=== PATIENT | male | born 1955 | race African-American/Black ===

== ENCOUNTER 2017-04-29 04:38 | Inpatient (IN) | payer MEDICARE, OTHER ==
[~2017-04-29] VITALS: Ht 182.9 cm; Wt 82.6 kg
[2017-04-29] VITALS (10 sets, daily range): BP systolic 97–143; BP diastolic 57–90; PULSE 102–135; RESP 18–23; TEMP 97.9–100.2; O2SAT 96–100
[2017-04-29] MEDS ORDERED: IODIXANOL 320 MG/ML 10 ML VIAL (for Rad CT) IV ONE (04:39)
--- NOTE | 2017-04-29 05:35 | PD ---
HPI Chief Complaint: Altered Mental Status Time Seen by Provider: 05:10 Travel History International Travel<30 days: No Contact w/Intl Traveler<30days: No Traveled to known affect area: No History of Present Illness HPI The patient is a 61 year old male who presents to the [facility] emergency department with a history of decreased appetite since Thursday. Then, he became more confused and intermittently moaning at bedtime. He pointed to his abdomen as the site of the pain. His then woke up later with him having gurgling in the back of his throat. He then seemed to be erratically breathing and possibly short of breath. She denies having any vomiting or diarrhea. She reports that he did have a subjective fever this evening as he felt warm to the touch. He missed his Lactulose for a few days because he went out of town. He has a baseline level of confusion related to prior strokes and is minimally verbal on exam. The patient's family member at the bedside reports that his urine has smelled stronger than usual over the last 2 days. The patient is incontinent of urine and uses depends.The patient's denies him having any recent cough, congestion, neck pain, chest pain,vomiting, diarrhea, or focal neurologic symptoms. [facility] Past Medical History Narrative Medical The patient's past medical history is significant for hepatic encephalopathy, uncircumcised and some difficulty urinating with recurrent UTIs, seizures, subdural hematoma that his reports was attempted to be drained on 2 occasions in the OR, however he ended up in cardiopulmonary arrest and was resuscitated, hypertension, hyperlipidemia, CVA, elevated PSA (followed by Dr. Mcgarry), history of coronary artery disease, history of COPD, history of DVT, history of hypernatremia. Neurologist: Dr. Mortensen Medical History: Unable to Obtain Cerebrovascular Accident: Yes Past Surgical History Narrative Surgical The patient's past surgical history is significant for iraida hole x2.. Surgical History: Unable to Obtain Social History Alcohol Use: No Tobacco Use: No Substance Use: No Allergies-Medications (Allergen,Severity, Reaction): Coded Allergies: No Known Allergies (Unverified , 04/29/17) Reported Meds & Prescriptions Reported Meds & Active Scripts Active Active Prescriptions or Reported Medications Unobtainable Review of Systems Except as stated in HPI: all other systems reviewed are Neg General / Constitutional: Positive: Fever (subjective fever prior to arrival) Eyes: No: Visual changes HENT: No: Headaches, Rhinorrhea, Congestion Cardiovascular: No: Chest Pain or Discomfort, Dyspnea on exertion Respiratory: Positive: Shortness of Breath, No: Cough Gastrointestinal: Positive: Loss of Appetite, No: Nausea, Vomiting, Diarrhea, Abdominal Pain, Changes in Bowel Habits, Indigestion Genitourinary: Positive: Incontinence, Other (strong odor to his urine), No: Dysuria Musculoskeletal: No: Pain Skin: No Rash Neurologic: Positive: Weakness (generalized weakness), Change in Mentation, No : Focal Abnormalities, Slurred Speech, Sensory Disturbance Psychiatric: No: Depression Endocrine: No: Polydipsia Hematologic/Lymphatic: No: Easy Bruising Physical Exam Narrative General: The patient is a well-developed well-nourished male in no acute distress. Head and Neck exam: Head is normocephalic atraumatic. Eyes: The patient is uncooperative with extraocular motion testing. Pupils are equal round and reactive to light. Nose: Midline septum with pink mucous membranes Mouth: Dentition unremarkable. Moist mucus membranes. Posterior oropharynx is not erythematous. No tonsillar hypertrophy. Uvula midline. Airway patent. Neck: No palpable lymphadenopathy. No nuchal rigidity. No thyromegaly. Cardiovascular: Sinus tachycardia in the 120s without murmurs, gallops, or rubs. No pulse deficit to the extremities and simultaneous auscultation and palpation of his radial artery. Lungs: Clear to auscultation bilaterally. No wheezes, rhonchi, or rales. Abdomen: Soft, with tenderness on palpation over the suprapubic area, no other tenderness on palpation of the other quadrants of the abdomen. No guarding, rebound, or rigidity. Normal bowel sounds are audible. No tenderness on palpation of McBurney's point. Negative Smiley's sign. Extremities: No clubbing, cyanosis, or edema. 2+ pulses in all 4 extremities. No calf tenderness on palpation. Back: No costovertebral angle tenderness to palpation. Neurologic Exam: The patient is at his baseline of mentation from looking at the electronic medical record and his prior neurologic examinations. The patient is verbally noncommunicative. The patient does open his eyes and make eye contact with me. The patient spontaneously moves his upper extremities and lower extremities. The patient does not follow commands. Skin Exam: No rash noted. Intact skin that is warm and dry. Data Data Last Documented VS Vital Signs Date Time Temp Pulse Resp B/P (MAP) Pulse Ox O2 Delivery O2 Flow Rate FiO2 04/29/17 05:22 121 20 99 Room Air 04/29/17 04:44 98.4 131/90 (104) Orders Orders Electrocardiogram (04/29/17 05:12) Complete Blood Count With Diff (04/29/17 05:12) Comprehensive Metabolic Panel (04/29/17 05:12) Creatine Kinase (Cpk) (04/29/17 05:12) Ckmb (Isoenzyme) Profile (04/29/17 05:12) Troponin I (04/29/17 05:12) B-Type Natriuretic Peptide (04/29/17 05:12) Prothrombin Time / Inr (Pt) (04/29/17 05:12) Act Partial Throm Time (Ptt) (04/29/17 05:12) Blood Culture (04/29/17 05:12) Lipase (04/29/17 05:12) Urinalysis - C+S If Indicated (04/29/17 05:12) Cath For Specimen (04/29/17 05:12) D-Dimer (04/29/17 05:12) Magnesium (Mg) (04/29/17 05:12) Thyroid Stimulating Hormone (04/29/17 05:12) Chest, Single Ap (04/29/17 05:12) Ct Brain W/O Iv Contrast(Rout) (04/29/17 05:12) Iv Access Insert/Monitor (04/29/17 05:12) Ecg Monitoring (04/29/17 05:12) Oximetry (04/29/17 05:12) Lactic Acid Sepsis Protocol (04/29/17 05:12) Ammonia (04/29/17 05:35) CKMB (04/29/17 05:25) CKMB% (04/29/17 05:25) Sodium Chlor 0.9% 1000 Ml Inj (Ns 1000 M (04/29/17 06:14) Sodium Chlor 0.9% 1000 Ml Inj (Ns 1000 M (04/29/17 06:14) Sodium Chlor 0.9% 1000 Ml Inj (Ns 1000 M (04/29/17 06:14) Vancomycin Inj (Vancomycin Inj) (04/29/17 06:15) Piperacil-Tazo 3.375 Gm Premix (Zosyn 3. (04/29/17 06:15) Ct Pulmonary Angiogram (04/29/17 06:18) Consult Urology (04/29/17 ) Admit Order (Ed Use Only) (04/29/17 07:13) Bladder Scan PRN (04/29/17 07:16) Labs Laboratory Tests Test 04/29/17 05:25 04/29/17 05:45 04/29/17 06:25 White Blood Count 3.5 TH/MM3 Red Blood Count 5.23 MIL/MM3 Hemoglobin 16.4 GM/DL Hematocrit 49.1 % Mean Corpuscular Volume 94.0 FL Mean Corpuscular Hemoglobin 31.5 PG Mean Corpuscular Hemoglobin Concent 33.5 % Red Cell Distribution Width 14.5 % Platelet Count 169 TH/MM3 Mean Platelet Volume 8.4 FL Neutrophils (%) (Auto) 85.6 % Lymphocytes (%) (Auto) 12.5 % Monocytes (%) (Auto) 1.7 % Eosinophils (%) (Auto) 0.1 % Basophils (%) (Auto) 0.1 % Neutrophils # (Auto) 3.0 TH/MM3 Lymphocytes # (Auto) 0.4 TH/MM3 Monocytes # (Auto) 0.1 TH/MM3 Eosinophils # (Auto) 0.0 TH/MM3 Basophils # (Auto) 0.0 TH/MM3 CBC Comment DIFF FINAL Differential Comment Prothrombin Time 10.8 SEC Prothromb Time International Ratio 1.0 RATIO Activated Partial Thromboplast Time 20.6 SEC D-Dimer Quantitative (PE/DVT) 2.40 MG/L FEU Blood Urea Nitrogen 9 MG/DL Creatinine 1.81 MG/DL Random Glucose 127 MG/DL Total Protein 8.9 GM/DL Albumin 4.5 GM/DL Calcium Level 11.2 MG/DL Magnesium Level 1.9 MG/DL Alkaline Phosphatase 164 U/L Aspartate Amino Transf (AST/SGOT) 66 U/L Alanine Aminotransferase (ALT/SGPT) 57 U/L Total Bilirubin 1.0 MG/DL Sodium Level 147 MEQ/L Potassium Level 3.7 MEQ/L Chloride Level 116 MEQ/L Carbon Dioxide Level 18.8 MEQ/L Anion Gap 12 MEQ/L Estimat Glomerular Filtration Rate 46 ML/MIN Lactic Acid Level 7.3 mmol/L Total Creatine Kinase 633 U/L Creatine Kinase MB 4.2 NG/ML Creatine Kinase MB % 0.7 % Troponin I 0.04 NG/ML B-Type Natriuretic Peptide 85 PG/ML Lipase 91 U/L Thyroid Stimulating Hormone 3rd Gen 1.000 uIU/ML Ammonia 22 MCMOL/L Urine Color ORANGE Urine Turbidity HAZY Urine pH 6.0 Urine Specific [place] 1.013 Urine Protein 30 mg/dL Urine Glucose (UA) NEG mg/dL Urine Ketones NEG mg/dL Urine Occult Blood LARGE Urine Nitrite NEG Urine Bilirubin NEG Urine Urobilinogen 2.0 MG/DL Urine Leukocyte Esterase LARGE Urine RBC /hpf Urine WBC 27 /hpf Urine WBC Clumps RARE Urine Squamous Epithelial Cells <1 /hpf Urine Transitional Epithelial Cells <1 /hpf Urine Bacteria MANY /hpf Urine Mucus FEW /lpf Microscopic Urinalysis Comment CULTURE INDICATED MDM Medical Decision Making Medical Screen Exam Complete: Yes Emergency Medical Condition: Yes Medical Record Reviewed: Yes Interpretation(s) Last Impressions Head CT 04/29/17511 Signed Impressions: Service Date/Time: Saturday, April 29, 2017 05:35 - CONCLUSION: 1. No acute hemorrhage or infarction. 2. Large chronic subdural fluid collection on the left with some mass effect including 8 mm of midline shift. 3. Significant areas of encephalomalacia involving the right cerebral hemisphere and left temporal lobe as detailed above. Endy Lemon Jr., MD Chest X-Ray 04/29/17511 Signed Impressions: Service Date/Time: Saturday, April 29, 2017 05:41 - CONCLUSION: No acute disease. Endy Lemon Jr., MD Differential Diagnosis Intracranial hemorrhage, versus urinary tract infection, versus dehydration, versus pneumonia, versus sepsis of undetermined origin, versus electrolyte arrangement Narrative Course During the course of the patients emergency department visit, the patients history, examination, and differential diagnosis were reviewed with the patient. The patient had IV access obtained and blood work sent for analysis. The patient was placed on a botany teacher with oximetry and blood pressure.. An ECG was done on arrival. The patient's ECG reveals a sinus tachycardia heart rate of 138, no acute ST segment elevation or depression is noted, QRS duration is 86 ms, QTC is 444 ms. The patient was initially provided a 30 mL per KG IV fluid bolus due to a concern for sepsis. The patient was started on broad-spectrum antibiotics to include Zosyn 3.375 g IV, vancomycin 1 g IV. An attempt was made at placement of a coud Winter catheter, however this would not pass. The patient is continuing to urinate on his own. The patient is normally incontinent. A sample was able to be obtained in the urinal. A bladder scan has been ordered on the patient. The patients laboratory studies were reviewed and remarkable for a white count of 3.5, hemoglobin 16.4, platelets 169 with neutrophils 85.6. CMP is remarkable for sodium of 147, chloride 116, CO2 18.8, creatinine 1.81, glucose 127, calcium 11.2, AST 66, alkaline phosphatase 164, CPK 633 with an MB percent 0.7, troponin I 0.04, BNP is 85, lipase 91, TSH 1.0, ammonia level is 22. Initial lactic acid is 7.3, PT PTT are unremarkable, d-dimer is elevated at 2.40 , CTA to rule out PE was ordered. Urinalysis shows 30 protein, large occult blood, large leukocyte esterase, innumerable rbc's, 27 WBCs with rare clumps, many bacteria, culture indicated. Radiology studies were reviewed and remarkable for a chest x-ray that shows no acute cardiopulmonary disease. A CT scan of the brain shows no acute hemorrhage or infarction, large chronic subdural fluid collection on the left with some mass effect including 8 mm of midline shift, significant area of encephalomalacia involving the right cerebral hemisphere and left temporal lobe. CTA to rule out PE shows severe respiratory motion artifact however no PE identified within the visualized vessels. Moderate emphysema. The patients results were discussed with the patient, including the plan of care. I explained that further testing and/ or monitoring is indicated based on the patients history, examination, and/ or laboratory findings. Therefore, I recommended admission for additional evaluation. The patient expressed understanding and was agreeable with this plan. The patient was admitted to the hospital in guarded condition and [facility] Critical Care Narrative Aggregate critical care time was 33 minutes. Time to perform other separately billable procedures was not included in the critical care time. My time did not include minutes spent treating any other patients simultaneously or on activities that did not directly contribute to the patient's treatment. The services I provided to this patient were to treat and/or prevent clinically significant deterioration that could result in: Fluid overload related to a resuscitation, versus cardiovascular collapse, versus progression of encephalopathy I provided critical care services requiring my management, as noted below: Chart data review, documentation time, medication orders and management, vital sign assessments/reviewing monitor data, ordering and reviewing lab tests, ordering and interpreting/reviewing x-rays and diagnostic studies, care of the patient and discussion of the patient with the admitting physicians. Sepsis Criteria SIRS Criteria (2 or more): Heart rate over 90, RR > 20 or PaCO2 < 32, WBC > 36540, < 4000 or > 10% bands Physician Communication Physician Communication The patient's case is discussed with who did agree to admit the patient for further evaluation and treatment at this time. Diagnosis Primary Impression: Sepsis Qualified Codes: A41.9 - Sepsis, unspecified organism Additional Impressions: Dehydration Urinary tract infection Qualified Codes: N39.0 - Urinary tract infection, site not specified; R31.9 - Hematuria, unspecified Admitting Information Admitting Physician Requests: Admit Scripts Unable to Obtain Active Prescriptions or Reported Meds Tamara Price MD Apr 29, 2017 05:35
--- NOTE | 2017-04-29 05:49 | RADRPT ---
EXAM DATE/TIME: 04/29/2017 05:35 [facility] COMPARISON: No previous studies available for comparison. INDICATIONS : Altered mental status; non verbal. RADIATION DOSE: 41.55 CTDIvol (mGy) MEDICAL HISTORY : Cerebrovascular disease. SURGICAL HISTORY : Non-responsive. ENCOUNTER: Initial ACUITY: 1 day PAIN SCALE: Non-responsive LOCATION: cranial TECHNIQUE: Multiple contiguous axial images were obtained of the head. Using automated exposure control and adj ustment of the mA and/or kV according to patient size, radiation dose was kept as low as reasonably a chievable to obtain optimal diagnostic quality images. DICOM format image data is available electro nically for review and comparison. FINDINGS: A large chronic subdural fluid collection is seen on the left side. This measures 2.6 cm in greatest thickness. As does generate some mass effect upon the left cerebral hemisphere. There is no associate d acute hemorrhage. Significant encephalomalacia seen scattered throughout the right frontal lobe, te mporal lobe, and parietal lobe. Encephalomalacia seen involving the left temporal lobe. There is 8 mm of [id number] midline shift secondary to the previously described chronic subdural. Ventricles re main normal in size. No acute hemorrhage, acute infarction, or mass observed. Multiple iraida hole seen on the left. Calvarium is otherwise intact. CONCLUSION: 1. No acute hemorrhage or infarction. 2. Large chronic subdural fluid collection on the left with some mass effect including 8 mm of midlin e shift. 3. Significant areas of encephalomalacia involving the right cerebral hemisphere and left temporal lo be as detailed above. Endy Lemon Jr., MD on April 29, 2017 at 5:45 Board Certified Radiologist. This report was verified electronically.
[2017-04-29 05:59] LABS: BASOPHIL % 0.1 % (0.0-2.0); EOSINOPHIL % 0.1 % (0.0-4.0); HEMATOCRIT 49.1 % (39.0-51.0); HEMO FLAGS DIFF FINAL; LYMPH % 12.5 % (9.0-44.0); LYMPHOCYTE # 0.4 TH/MM3 (1.0-4.8); MEAN CORPUSCULAR HEMOGLOBIN 31.5 PG (27.0-34.0); MEAN CORPUSCULAR HGB CONC 33.5 % (32.0-36.0); MONO % 1.7 % (0.0-8.0); NEUT % 85.6 % (16.0-70.0); PLATELET COUNT 169 TH/MM3 (150-450); RED BLOOD COUNT 5.23 MIL/MM3 (4.50-5.90); RED CELL DISTRIBUTION WIDTH 14.5 % (11.6-17.2); WHITE BLOOD COUNT 3.5 TH/MM3 (4.0-11.0)
[2017-04-29 06:00] LABS: ALT (GPT) 57 U/L (12-78); ANION GAP 12 MEQ/L (5-15); AST (GOT) 66 U/L (15-37); BICARBONATE 18.8 MEQ/L (21.0-32.0); BLOOD UREA NITROGEN 9 MG/DL (7-18); CHLORIDE 116 MEQ/L (98-107); GLOMERULAR FILTRATION RATE 46 ML/MIN (>89); MAGNESIUM 1.9 MG/DL (1.5-2.5); POTASSIUM 3.7 MEQ/L (3.5-5.1); SODIUM (NA) 147 MEQ/L (136-145)
[2017-04-29 06:05] LABS: APTT (PATIENT) 20.6 SEC (24.3-30.1); PROTHROMBIN TIME - PATIENT 10.8 SEC (9.8-11.6)
[2017-04-29 06:10] LABS: ALKALINE PHOSPHATASE 164 U/L (45-117); CREATINE KINASE 633 U/L (39-308)
[2017-04-29] MEDS ORDERED: SODIUM CHLOR 0.9% 1000 ML INJ 1,000 ML IV ONE ×2 (06:14)
[2017-04-29] MEDS ORDERED: SODIUM CHLOR 0.9% 1000 ML INJ 400 ML IV ONE (06:14)
[2017-04-29] MEDS ORDERED: VANCOMYCIN INJ 1,000 MG in SODIUM CHLOR 0.9% 250 ML INJ 250 ML IV ONE (06:15)
[2017-04-29] MEDS ORDERED: PIPERACIL-TAZO 3.375 GM PREMIX 50 ML IV ONE (06:15)
[2017-04-29 06:22] LABS: CKMB 4.2 NG/ML (0.5-3.6)
--- NOTE | 2017-04-29 06:29 | RADRPT ---
EXAM DATE/TIME: 04/29/2017 05:41 [facility] COMPARISON: No previous studies available for comparison. INDICATIONS : Short of breath. MEDICAL HISTORY : None. SURGICAL HISTORY : None. ENCOUNTER: Initial ACUITY: 1 day PAIN SCORE: 0/10 LOCATION: Bilateral chest FINDINGS: A single view of the chest demonstrates the lungs to be symmetrically aerated without evidence of mas s, infiltrate or effusion. The cardiomediastinal contours are unremarkable. Osseous structures are intact. CONCLUSION: No acute disease. Endy Lemon Jr., MD on April 29, 2017 at 6:27 Board Certified Radiologist. This report was verified electronically.
[2017-04-29 07:37] LABS: LACTIC ACID GHOST NOT REPORTABLE
--- NOTE | 2017-04-29 07:38 | RADRPT ---
EXAM DATE/TIME: 04/29/2017 07:10 [facility] COMPARISON: No previous studies available for comparison. INDICATIONS : Elevated D-dimer. IV CONTRAST: 75 cc Visipaque (iodixanol) IV RADIATION DOSE: 19.66 CTDIvol (mGy) MEDICAL HISTORY : Cerebrovascular disease. SURGICAL HISTORY : None. ENCOUNTER: Initial ACUITY: 1 day PAIN SCALE: Non-responsive LOCATION: chest TECHNIQUE: Volumetric scanning of the chest was performed using a pulmonary embolism protocol MIP images were re constructed. Using automated exposure control and adjustment of the mA and/or kV according to patien t size, radiation dose was kept as low as reasonably achievable to obtain optimal diagnostic quality images. DICOM format image data is available electronically for review and comparison. Follow-up recommendations for detected pulmonary nodules are based at a minimum on nodule size and pa tient risk factors according to Fleischner Society Guidelines. FINDINGS: Dissemination quality significantly degraded by respiratory motion artifact and less than optimal opa cification of the pulmonary arteries. PULMONARY ARTERIES: No filling defects are seen in the pulmonary arteries through some of the segmental level arterial ve ssels. LUNGS: There is no consolidation or pneumothorax . There are emphysematous changes bilaterally. PLEURAE: There is no pleural thickening or pleural effusion. MEDIASTINUM: Heart and great vessels demonstrate no acute finding. There is coronary artery calcification. No lymp hadenopathy is visualized. MUSCULOSKELETAL: No acute abnormality. MISCELLANEOUS: The visualized upper abdominal organs demonstrate no acute abnormality. CONCLUSION: 1. Examination quality is significantly degraded by severe respiratory motion artifact. However, no P E is identified within the visualized vessels. 2. Moderate emphysema. Sj Carter MD on April 29, 2017 at 7:33 Board Certified Radiologist. This report was verified electronically.
[2017-04-29 07:41] LABS: BACTERIA, URINE MANY /hpf; BLOOD, URINE LARGE (NEG); GLUCOSE,URINE NEG (NEG); KETONE, URINE NEG (NEG); MUCUS URINE FEW /lpf (OCC); NITRITE,URINE NEG (NEG); SQUAMOUS EPITHELIAL CELL URINE <1 /hpf (0-5); TRANSITIONAL EPI CELLS, URINE <1 /hpf
[2017-04-29 07:42] LABS: COMMENT (UR) CULTURE INDICATED; CULTURE IF INDICATED CULTURE INDICATED; URINE COLOR ORANGE (YELLW/STRAW)
[2017-04-29] MEDS ORDERED: ACETAMINOPHEN 325 MG TAB PO PRN ×2 (08:00)
[2017-04-29] MEDS ORDERED: ONDANSETRON HCL 4 MG/2 ML VIAL IVP PRN (08:00)
[2017-04-29] MEDS: SODIUM CHLOR 0.9% 1000 ML INJ 1,000 ML IV SCH ×2 (08:00→15:25)
[2017-04-29] MEDS ORDERED: MORPHINE SULFATE 4 MG/ML INJ IV PUSH PRN ×2 (08:00)
[2017-04-29] MEDS ORDERED: NALOXONE HCL 0.4 MG/ML AMP IV PUSH PRN (08:00)
[2017-04-29] MEDS ORDERED: oxyCODONE/ACETAMINOPHEN 10 MG/325 MG TAB PO PRN (08:00)
[2017-04-29] MEDS ORDERED: PROCHLORPERAZINE 25 MG SUPP RECTAL PRN (08:00)
[2017-04-29] MEDS ORDERED: SENNOSIDES 8.6 MG TAB PO PRN (08:00)
[2017-04-29] MEDS ORDERED: MAGNESIUM HYDROXIDE SUSP 30 ML CUP PO PRN (08:00)
[2017-04-29] MEDS ORDERED: BISACODYL 10 MG SUPP RECTAL PRN (08:00)
[2017-04-29] MEDS ORDERED: LACTULOSE SYRUP 20 GM/30 ML CUP PO PRN (08:00)
[2017-04-29] MEDS ORDERED: SODIUM CHLORIDE 0.9% FLUSH 10 ML FLUSH IV FLUSH PRN (08:00)
[2017-04-29] MEDS ORDERED: Vancomycin Consult Pharmacy 1 EA OTHER SCH (08:15)
[2017-04-29] MEDS ORDERED: AMLO5 PO (08:29)
[2017-04-29] MEDS ORDERED: VIMP200T PO (08:29)
[2017-04-29] MEDS: SODIUM CHLORIDE 0.9% FLUSH 10 ML FLUSH IV FLUSH SCH ×2 (08:57→20:56)
[2017-04-29] MEDS ORDERED: LIVA2TAB PO (09:10)
[2017-04-29] MEDS ORDERED: OMEP20TA PO (09:10)
[2017-04-29] MEDS ORDERED: VITA100T54 PO (09:10)
[2017-04-29] MEDS ORDERED: TOPA50TA7 PO (09:10)
--- NOTE | 2017-04-29 09:42 | HHI.HP ---
HPI Service [facility] Hospitalists Primary Care Physician Monet Soliman DO Admission Diagnosis Dehydration, Sepsis Diagnoses: (1) Urinary retention Diagnosis: Principal (2) UTI (urinary tract infection) Diagnosis: Principal (3) Dehydration Diagnosis: Principal (4) Urinary tract infection Diagnosis: Principal (5) Sepsis Diagnosis: Principal (6) Cerebral vascular accident Diagnosis: Secondary Travel History International Travel<30 Days: No Contact w/Intl Traveler <30 Da: No Traveled to Known Affected Are: No History of Present Illness The patient is a 61 year old male who presents to the [facility] emergency department with a history of decreased appetite since Thursday. Then, he became more confused and intermittently moaning at bedtime. He pointed to his abdomen as the site of the pain. His then woke up later with him having gurgling in the back of his throat. He then seemed to be erratically breathing and possibly short of breath. She denies having any vomiting or diarrhea. She reports that he did have a subjective fever this evening as he felt warm to the touch. He missed his Lactulose for a few days because he went out of town. He has a baseline level of confusion related to prior strokes and is minimally verbal on exam. The patient's family member at the bedside reports that his urine has smelled stronger than usual over the last 2 days. The patient is incontinent of urine and uses depends.The patient's denies him having any recent cough, congestion, neck pain, chest pain,vomiting, diarrhea, or focal neurologic symptoms. PATIENT REMAINS NONVERBAL AT THIS TIME DW RN TRY TO OBTAIN HOME MEDICATIONS CONSULT UROLOGY Review of Systems ROS Limitations: Altered Mental Status, Poor Historian Past Family Social History Past Medical History History of subdural hematoma History of urinary retention History of CVA with chronic aphasia History of chronic urinary issues Hepatic encephalopathy Seizures Subdural hematoma Hypertension Hyperlipidemia history of CVA history of elevated PSA history of coronary artery disease history of COPD history of tobacco abuse history of DVT history of hypernatremia Past Surgical History Attempted iraida hole for subarachnoid History of CVA Looks like history of tracheostomy and history of PEG tube both removed Reported Medications Unknown at this time need to be obtained Allergies: Coded Allergies: No Known Allergies (Unverified , 04/29/17) Active Ordered Medications Current Medications Sodium Chloride 1,000 ml @ 1,000 mls/hr Q1H ONCE IV Last administered on 06:30; Start 04/29/17 at 06:14; Stop 04/29/17 at 07:13; Status DC Sodium Chloride 1,000 ml @ 1,000 mls/hr Q1H ONCE IV Last administered on 07:56; Start 04/29/17 at 06:14; Stop 04/29/17 at 07:13; Status DC Sodium Chloride 400 ml @ 1,000 mls/hr Q24M ONCE IV Last administered on 07:56; Start 04/29/17 at 06:14; Stop 04/29/17 at 06:37; Status DC Vancomycin HCl 1000 mg/Sodium Chloride 250 ml @ 250 mls/hr ONCE ONCE IV Last administered on 04/29/17 07:57; Start 04/29/17 at 06:15; Stop 04/29/17 at 07:14 ; Status DC Piperacillin Sod/ Tazobactam Sod 50 ml @ 100 mls/hr ONCE ONCE IV Last administered on 04/29/17 06:30; Start 04/29/17 at 06:15; Stop 04/29/17 at 06:44 ; Status DC Iodixanol (VISIPAQUE 320 INJ (Rad CT)) 75 ml STK-MED ONCE IV Last administered on 04/29/17 04:39; Start 04/29/17 at 04:39; Stop 04/29/17 at 07:20; Status DC Sodium Chloride 1,000 ml @ 125 mls/hr Q8H IV Last administered on 04/29/17 08 :00; Start 04/29/17 at 08:00 Sodium Chloride (NS Flush) 2 ml UNSCH PRN IV FLUSH FLUSH AFTER USING IV ACCESS ; Start 04/29/17 at 08:00 Sodium Chloride (NS Flush) 2 ml BID IV FLUSH ; Start 04/29/17 at 09:00 Acetaminophen (Tylenol) 650 mg Q4H PRN PO TEMP > 100.4; Start 04/29/17 at 08:00 Ondansetron HCl (Zofran Inj) 4 mg Q6H PRN IVP NAUSEA OR VOMITING; Start at 08:00 Prochlorperazine (Compazine Supp) 25 mg Q12H PRN VA NAUSEA OR VOMITING; Start 04/29/17 at 08:00; Status UNV Acetaminophen (Tylenol) 650 mg Q6H PRN PO PAIN SCALE 1 TO 2; Start 04/29/17 at 08:00 Oxycodone/ Acetaminophen (Percocet 5-325 Mg) 1 tab Q6H PRN PO PAIN SCALE 3 TO 5; Start 04/29/17 at 08:00 Oxycodone/ Acetaminophen (Percocet 10-325 Mg) 1 tab Q6H PRN PO PAIN SCALE 6 TO 10; Start 04/29/17 at 08:00 Morphine Sulfate (Morphine Inj) 2 mg Q3H PRN IV PUSH Pain 3-5; if unable to take PO; Start 04/29/17 at 08:00 Morphine Sulfate (Morphine Inj) 4 mg Q3H PRN IV PUSH Pain 6-10;if unable to take PO; Start 04/29/17 at 08:00 Naloxone HCl (Narcan Inj) 0.4 mg UNSCH PRN IV PUSH SEE LABEL COMMENTS; Start at 08:00 Senna/Docusate Sodium (Kaylen-Colace) 1 tab BID PO ; Start 04/29/17 at 09:00 Magnesium Hydroxide (Milk Of Magnesia Liq) 30 ml Q12H PRN PO MILD - MODERATE CONSTIPATION; Start 04/29/17 at 08:00 Sennosides (Senokot) 17.2 mg Q12H PRN PO MODERATE - SEVERE CONSTIPATION; Start 04/29/17 at 08:00 Bisacodyl (Dulcolax Supp) 10 mg DAILY PRN RECTAL SEVERE CONSITIPATION; Start at 08:00 Lactulose (Lactulose Liq) 30 ml DAILY PRN PO SEVERE CONSITIPATION; Start at 08:00 Piperacillin Sod/ Tazobactam Sod 100 ml @ 200 mls/hr Q6H IV ; Start 04/29/17 at 08:15; Status UNV Pharmacy Profile Note 0 ml @ 0 mls/hr UNSCH OTHER ; Start 04/29/17 at 08:15 Family History Unobtainable from the patient Social History No tobacco alcohol or illicits currently Physical Exam Vital Signs Vital Signs Date Time Temp Pulse Resp B/P (MAP) Pulse Ox O2 Delivery O2 Flow Rate FiO2 04/29/17 07:30 99.0 108 18 133/83 (100) 97 Room Air 04/29/17 07:05 18 98 Room Air 04/29/17 05:22 121 20 99 Room Air 04/29/17 04:51 137 24 96 Room Air 04/29/17 04:44 98.4 135 20 131/90 (104) 96 Physical Exam GENERAL: This is a well-nourished, well-developed patient, in no apparent distress. SKIN: No rashes, ecchymoses or lesions. Cool and dry. HEAD: Atraumatic. Normocephalic. No temporal or scalp tenderness. EYES: Pupils equal round and reactive. Extraocular motions intact. No scleral icterus. No injection or drainage. ENT: Nose without bleeding, purulent drainage or septal hematoma. Throat without erythema, tonsillar hypertrophy or exudate. Uvula midline. Airway patent. NECK: Trachea midline. No JVD or lymphadenopathy. Supple, nontender, no meningeal signs. Old tracheostomy scar CARDIOVASCULAR: Regular rate and rhythm without murmurs, gallops, or rubs. S1- S2 no S3 or S4 some tachycardia RESPIRATORY: Clear to auscultation. Breath sounds equal bilaterally. No wheezes , rales, or rhonchi. GASTROINTESTINAL: Abdomen soft, non-tender, nondistended. No hepato-splenomegaly , or palpable masses. No guarding. Old PEG tube site MUSCULOSKELETAL: Extremities without clubbing, cyanosis, or edema. No joint tenderness, effusion, or edema noted. No calf tenderness. Negative Homans sign bilaterally. NEUROLOGICAL: Awake and alert. Not able to assess cranial nerves. Motor and sensory grossly within normal limits. 3 out of 5 muscle strength in all muscle groups. Nonverbal at this time. Not able to assess insight and judgment Not able to assess mood and behavior Laboratory Laboratory Tests Test 04/29/17 05:25 04/29/17 05:45 04/29/17 06:25 04/29/17 07:20 White Blood Count 3.5 Red Blood Count 5.23 Hemoglobin 16.4 Hematocrit 49.1 Mean Corpuscular Volume 94.0 Mean Corpuscular Hemoglobin 31.5 Mean Corpuscular Hemoglobin Concent 33.5 Red Cell Distribution Width 14.5 Platelet Count 169 Mean Platelet Volume 8.4 Neutrophils (%) (Auto) 85.6 Lymphocytes (%) (Auto) 12.5 Monocytes (%) (Auto) 1.7 Eosinophils (%) (Auto) 0.1 Basophils (%) (Auto) 0.1 Neutrophils # (Auto) 3.0 Lymphocytes # (Auto) 0.4 Monocytes # (Auto) 0.1 Eosinophils # (Auto) 0.0 Basophils # (Auto) 0.0 CBC Comment DIFF FINAL Differential Comment Prothrombin Time 10.8 Prothromb Time International Ratio 1.0 Activated Partial Thromboplast Time 20.6 D-Dimer Quantitative (PE/DVT) 2.40 Blood Urea Nitrogen 9 Creatinine 1.81 Random Glucose 127 Total Protein 8.9 Albumin 4.5 Calcium Level 11.2 Magnesium Level 1.9 Alkaline Phosphatase 164 Aspartate Amino Transf (AST/SGOT) 66 Alanine Aminotransferase (ALT/SGPT) 57 Total Bilirubin 1.0 Sodium Level 147 Potassium Level 3.7 Chloride Level 116 Carbon Dioxide Level 18.8 Anion Gap 12 Estimat Glomerular Filtration Rate 46 Lactic Acid Level 7.3 4.6 Total Creatine Kinase 633 Creatine Kinase MB 4.2 Creatine Kinase MB % 0.7 Troponin I 0.04 B-Type Natriuretic Peptide 85 Lipase 91 Thyroid Stimulating Hormone 3rd Gen 1.000 Ammonia 22 Urine Color ORANGE Urine Turbidity HAZY Urine pH 6.0 Urine Specific [place] 1.013 Urine Protein 30 Urine Glucose (UA) NEG Urine Ketones NEG Urine Occult Blood LARGE Urine Nitrite NEG Urine Bilirubin NEG Urine Urobilinogen 2.0 Urine Leukocyte Esterase LARGE Urine RBC Urine WBC 27 Urine WBC Clumps RARE Urine Squamous Epithelial Cells <1 Urine Transitional Epithelial Cells <1 Urine Bacteria MANY Urine Mucus FEW Microscopic Urinalysis Comment CULTURE INDICATED Date/Time Source Procedure Growth Status 04/29/17 05:25 Blood Peripheral Aerobic Blood Culture Pending Received 04/29/17 05:25 Blood Peripheral Anaerobic Blood Culture Pending Received 04/29/17 06:25 Urine Clean Catch Urine Culture Pending Received Result Diagram: 04/29/1725 04/29/[address] Angiography 04/29/1718 Signed Impressions: Service Date/Time: Thursday, April 29, 2017 07:10 - CONCLUSION: 1. Examination quality is significantly degraded by severe respiratory motion artifact. However, no PE is identified within the visualized vessels. 2. Moderate emphysema. Sj Carter MD Head CT 04/29/17511 Signed Impressions: Service Date/Time: Saturday, April 29, 2017 05:35 - CONCLUSION: 1. No acute hemorrhage or infarction. 2. Large chronic subdural fluid collection on the left with some mass effect including 8 mm of midline shift. 3. Significant areas of encephalomalacia involving the right cerebral hemisphere and left temporal lobe as detailed above. Endy Lemon Jr., MD Chest X-Ray 04/29/17511 Signed Impressions: Service Date/Time: Saturday, April 29, 2017 05:41 - CONCLUSION: No acute disease. MD Akiko Tripathi Jr.i VTE Risk Assessment Caprini VTE Risk Assessment: Mod/High Risk (score >= 2) Caprini Risk Assessment Model Point Value = 1 Point Value = 2 Point Value = 3 Point Value = 5 Age 41-60 Minor surgery BMI > 25 kg/m2 Swollen legs Varicose veins or History of unexplained or recurrent spontaneous Oral contraceptives or hormone replacement Sepsis (< 1 month) Serious lung disease, including pneumonia (< 1 month) Abnormal pulmonary function Acute myocardial infarction Congestive heart failure (< 1 month) History of inflammatory bowel disease Medical patient at bed rest Age 61-74 Arthroscopic surgery Major open surgery (> 45 min) Laparoscopic surgery (> 45 min) Malignancy Confined to bed (> 72 hours) Immobilizing plaster cast Central venous access Age >= 75 History of VTE Family history of VTE Factor V Leiden Prothrombin [id number] Lupus anticoagulant Anticardiolipin antibodies Elevated serum homocysteine Heparin-induced thrombocytopenia Other congenital or acquired thrombophilia Stroke (< 1 month) Elective arthroplasty Hip, pelvis, or leg fracture Acute spinal cord injury (< 1 month) Prophylaxis Regimen Total Risk Factor Score Risk Level Prophylaxis Regimen 0-1 Low Early ambulation 2 Moderate Order ONE of the following: *Sequential Compression Device (SCD) *Heparin 5000 units SQ BID 3-4 Higher Order ONE of the following medications: *Heparin 5000 units SQ TID *Enoxaparin/Lovenox 40 mg SQ daily (WT < 150 kg, CrCl > 30 mL/min) *Enoxaparin/Lovenox 30 mg SQ daily (WT < 150 kg, CrCl > 10-29 mL/min) *Enoxaparin/Lovenox 30 mg SQ BID (WT < 150 kg, CrCl > 30 mL/min) AND/OR *Sequential Compression Device (SCD) 5 or more Highest Order ONE of the following medications: *Heparin 5000 units SQ TID (Preferred with Epidurals) *Enoxaparin/Lovenox 40 mg SQ daily (WT < 150 kg, CrCl > 30 mL/min) *Enoxaparin/Lovenox 30 mg SQ daily (WT < 150 kg, CrCl > 10-29 mL/min) *Enoxaparin/Lovenox 30 mg SQ BID (WT < 150 kg, CrCl > 30 mL/min) AND *Sequential Compression Device (SCD) Assessment and Plan Problem List: (1) Cerebral vascular accident ICD Code: I63.9 - Cerebral infarction, unspecified (2) UTI (urinary tract infection) ICD Code: N39.0 - Urinary tract infection, site not specified (3) Urinary retention ICD Code: R33.9 - Retention of urine, unspecified (4) Sepsis ICD Code: A41.9 - Sepsis, unspecified organism Status: Acute (5) Urinary tract infection ICD Code: N39.0 - Urinary tract infection, site not specified Status: Acute (6) Dehydration ICD Code: E86.0 - Dehydration Status: Acute Assessment and Plan Sepsis suspected to urinary tract infection continue on vancomycin and Zosyn consult urology Dehydration and renal insufficiency continue on fluid rehydration History of hepatic encephalopathy continue on lactulose History of hyperlipidemia monitor labs continue on home medications History of CVA physical therapy and occupational therapy History of elevated PSA consult urology History of hypertension continue on Norvasc History of coronary artery disease stable at this time History of COPD History of GERD continue on PPI History of DVT History of hypernatremia Renal insufficiency and any fluid rehydration Code Status Full code Discussed Condition With ER physician and RN Patient unfortunately is aphasic and history not obtainable from him Physician Certification 2 Midnight Certification Type: Admission for Inpatient Services Order for Inpatient Services The services are ordered in accordance with Medicare regulations or non- Medicare payer requirements, as applicable. In the case of services not specified as inpatient-only, they are appropriately provided as inpatient services in accordance with the 2-midnight benchmark. Estimated LOS (days): 3 3 days is the estimated time the patient will need to remain in the hospital, assuming treatment plan goals are met and no additional complications. Post-Hospital Plan: Not yet determined Problem Qualifiers (1) Urinary tract infection: Qualified Codes: N39.0 - Urinary tract infection, site not specified; R31.9 - Hematuria, unspecified (2) Sepsis: Qualified Codes: A41.9 - Sepsis, unspecified organism Norman Daley DO Apr 29, 2017 09:42
[2017-04-29] MEDS: DOCUSATE SODIUM 50 MG/SENNA 8.6 MG TAB PO SCH ×2 (09:43→20:55)
[2017-04-29] MEDS ORDERED: amLODIPine BESYLATE 5 MG TAB PO SCH (09:45)
[2017-04-29] MEDS: THIAMINE HCL 100 MG TAB PO SCH (10:02)
[2017-04-29] MEDS: PANTOPRAZOLE SOD 20 MG DELAYED RELEASE TAB PO SCH (10:02)
[2017-04-29] MEDS: TOPIRAMATE 25 MG TAB PO SCH ×2 (10:02→20:55)
[2017-04-29] MEDS: PRAVASTATIN SOD 40 MG TAB PO SCH (10:02)
[2017-04-29] MEDS: LACOSAMIDE 100 MG TAB PO SCH ×2 (10:21→20:56)
[2017-04-29] MEDS: PIPERACIL-TAZO 4.5 GM PREMIX 100 ML IV SCH ×3 (12:57→23:14)
[2017-04-29 17:09] LABS: APTT (PATIENT) 27.9 SEC (24.3-30.1); INTERNATIONAL NORMALIZED RATIO 1.3 RATIO; PROTHROMBIN TIME - PATIENT 14.2 SEC (9.8-11.6)
[2017-04-29 17:29] LABS: CKMB 2.7 NG/ML (0.5-3.6)
[2017-04-29 18:44] LABS: LACTIC ACID GHOST NOT REPORTABLE
--- NOTE | 2017-04-29 20:44 | EKG ---
Date Performed: 04/29/2017 Time Performed: 04:54:14 PTAGE: 61 years EKG: SINUS TACHYCARDIA PROBABLE INFERIOR MYOCARDIAL INFARCTION ABNORMAL ECG NO PREVIOUS TRACING DOCTOR: Deny Castellanos Interpretating Date/Time 04/29/2017 20:41:20
[2017-04-29] MEDS ORDERED: VANCOMYCIN INJ 1,500 MG in SODIUM CHLORID 0.9% 500 ML INJ 500 ML IV SCH (21:00)
[2017-04-30] VITALS (7 sets, daily range): BP systolic 90–147; BP diastolic 50–78; PULSE 83–95; RESP 18–20; TEMP 97.6–99; O2SAT 95–100
[2017-04-30 00:03] LABS: HDL CHOLESTEROL 52.6 MG/DL (40.0-60.0)
[2017-04-30] MEDS: PIPERACIL-TAZO 4.5 GM PREMIX 100 ML IV SCH ×3 (05:10→17:22)
[2017-04-30] MEDS: oxyCODONE/ACETAMINOPHEN 5 MG/325 MG TAB PO PRN ×2 (05:11→21:22)
--- NOTE | 2017-04-30 09:01 | HHI.PR ---
Subjective Remarks The patient was resting in bed. He would not open his eyes. He would mumble every once in a while as a response. He appeared comfortable. Discussed with nursing at the bedside. Objective Vitals Vital Signs Date Time Temp Pulse Resp B/P (MAP) Pulse Ox O2 Delivery O2 Flow Rate FiO2 04/30/17 05:00 98.7 86 20 108/78 (88) 100 04/30/17 00:00 99.0 85 18 90/50 (63) 100 04/29/17 22:00 102 04/29/17 21:10 100 21 04/29/17 20:00 99.6 104 20 113/62 (79) 100 04/29/17 20:00 104 04/29/17 17:00 100.2 102 22 97/61 (73) 100 04/29/17 12:00 99.8 120 23 121/57 (78) 99 04/29/17 10:40 97.9 98 18 143/67 (92) 99 I/O 04/29/17 04/29/17 04/29/17 04/30/17 04/30/17 04/30/17 06:59 14:59 22:59 06:59 14:59 22:59 Intake Total 3600 ml 1120 ml 1540 ml Output Total 650 ml Balance 3600 ml 1120 ml 890 ml Intake Oral 200 ml 120 ml 840 ml IV Total 3400 ml 1000 ml 700 ml Output Urine Total 650 ml Bladder Scan Volume Amount 694 ml # Voids 1 2 3 # Bowel Movements 1 0 2 Result Diagram: 04/29/1752404/29/[address] Angiography 04/29/17617 Signed Impressions: Service Date/Time: Saturday, April 29, 2017 07:10 - CONCLUSION: 1. Examination quality is significantly degraded by severe respiratory motion artifact. However, no PE is identified within the visualized vessels. 2. Moderate emphysema. Sj Carter MD Head CT 04/29/17511 Signed Impressions: Service Date/Time: Saturday, April 29, 2017 05:35 - CONCLUSION: 1. No acute hemorrhage or infarction. 2. Large chronic subdural fluid collection on the left with some mass effect including 8 mm of midline shift. 3. Significant areas of encephalomalacia involving the right cerebral hemisphere and left temporal lobe as detailed above. Endy Lemon Jr., MD Chest X-Ray 04/29/17 0512 Signed Impressions: Service Date/Time: Saturday, April 29, 2017 05:41 - CONCLUSION: No acute disease. Endy Lemon Jr., MD Objective Remarks GENERAL: Appears comfortable. SKIN: No rashes, ecchymoses or lesions. Cool and dry. HEAD: Atraumatic. Normocephalic. No temporal or scalp tenderness. EYES: Pupils equal round and reactive. Extraocular motions intact. No scleral icterus. No injection or drainage. ENT: Nose without bleeding, purulent drainage or septal hematoma. Throat without erythema, tonsillar hypertrophy or exudate. Uvula midline. Airway patent. NECK: Trachea midline. No JVD or lymphadenopathy. Supple, nontender, no meningeal signs. Old tracheostomy scar CARDIOVASCULAR: Regular rate and rhythm without murmurs, gallops, or rubs. RESPIRATORY: Clear to auscultation. Breath sounds equal bilaterally. No wheezes , rales, or rhonchi. GASTROINTESTINAL: Abdomen soft, non-tender, nondistended. No hepato-splenomegaly , or palpable masses. No guarding. MUSCULOSKELETAL: Extremities without clubbing, cyanosis, or edema. No joint tenderness, effusion, or edema noted. NEUROLOGICAL: Nonverbal at this time. Moves extremities. Uncooperative with exam. Medications and IVs Current Medications Medications (Trade) Dose Ordered Sig/Feliciano Route Start Time Stop Time Status Last Admin Sodium Chloride 1,000 ml @ 125 mls/hr Q8H IV 04/29/17 08:00 04/29/17 15:25 (NS Flush) 2 ml UNSCH PRN IV FLUSH 04/29/17 08:00 (NS Flush) 2 ml BID IV FLUSH 04/29/17 09:00 (Tylenol) 650 mg Q4H PRN PO 04/29/17 08:00 (Zofran Inj) 4 mg Q6H PRN IVP 04/29/17 08:00 (Compazine Supp) 25 mg Q12H PRN RECTAL 04/29/17 08:00 (Tylenol) 650 mg Q6H PRN PO 04/29/17 08:00 (Percocet 5-325 Mg) 1 tab Q6H PRN PO 04/29/17 08:00 04/30/17 05:11 (Percocet 10-325 Mg) 1 tab Q6H PRN PO 04/29/17 08:00 (Morphine Inj) 2 mg Q3H PRN IV PUSH 04/29/17 08:00 (Morphine Inj) 4 mg Q3H PRN IV PUSH 04/29/17 08:00 (Narcan Inj) 0.4 mg UNSCH PRN IV PUSH 04/29/17 08:00 (Kaylen-Colace) 1 tab BID PO 04/29/17 09:00 04/29/17 20:55 (Milk Of Magnesia Liq) 30 ml Q12H PRN PO 04/29/17 08:00 (Senokot) 17.2 mg Q12H PRN PO 04/29/17 08:00 (Dulcolax Supp) 10 mg DAILY PRN RECTAL 04/29/17 08:00 (Lactulose Liq) 30 ml DAILY PRN PO 04/29/17 08:00 Piperacillin Sod/ Tazobactam Sod 100 ml @ 200 mls/hr Q6H IV 04/29/17 12:00 04/30/17 05:10 Pharmacy Profile Note 0 ml @ 0 mls/hr UNSCH OTHER 04/29/17 08:15 Miscellaneous Information SPECIFIC LAB TO BE DRAWN:VANCOMYCIN TROUGH DATE TO... ONCE ONCE .XX 05/01/17 20:45 05/01/17 20:46 Vancomycin HCl 1500 mg/Sodium Chloride 515 ml @ 250 mls/hr Q24H IV 04/29/17 21:00 04/29/17 20:55 (Norvasc) 5 mg DAILY PO 04/29/17 09:45 04/29/17 10:02 (Vimpat) 200 mg BID PO 04/29/17 09:45 04/29/17 20:56 (Vitamin B1) 100 mg DAILY PO 04/29/17 09:45 04/29/17 10:02 (Topamax) 50 mg BID PO 04/29/17 09:45 04/29/17 20:55 (Protonix) 20 mg DAILY PO 04/29/17 10:00 04/29/17 10:02 (Pravachol) 40 mg DAILY PO 04/29/17 10:00 04/29/17 10:02 A/P Problem List: (1) Cerebral vascular accident ICD Code: I63.9 - Cerebral infarction, unspecified (2) UTI (urinary tract infection) ICD Code: N39.0 - Urinary tract infection, site not specified (3) Urinary retention ICD Code: R33.9 - Retention of urine, unspecified (4) Sepsis ICD Code: A41.9 - Sepsis, unspecified organism Status: Acute (5) Urinary tract infection ICD Code: N39.0 - Urinary tract infection, site not specified Status: Acute (6) Dehydration ICD Code: E86.0 - Dehydration Status: Acute Assessment and Plan Sepsis Suspected secondary to urinary tract infection. - continue on vancomycin and Zosyn. - consult urology for urinary retention. - IVFs. - follow blood and urine culture data. Metabolic encephalopathy Likely s/t above. CT showed: No acute hemorrhage or infarction; Large chronic subdural fluid collection on the left with some mass effect including 8 mm of midline shift; Significant areas of encephalomalacia involving the right cerebral hemisphere and left temporal lobe. - treatment as above. - continue lactulose. - consider neurology consult. - restraints as needed for safety. Unable to give antipsychotics s/t prolonged QT. Ativan if needed. Dehydration and renal insufficiency Unsure of baseline creatinine. - continue on fluid rehydration. - follow BMP and avoid nephrotoxic agents. Hypernatremia Likely s/t decreased PO intake. - change fluids to 1/2 NS and follow BMP. Will change to D5W if needed. History of CVA The pt is nonverbal at this time. - continue physical therapy, occupational and speech therapy. History of hypertension Normotensive to hypotensive at this time. - hold Norvasc. PPx: Heparin Discharge Planning Transfer to medical floor Problem Qualifiers (1) Sepsis: Qualified Codes: A41.9 - Sepsis, unspecified organism (2) Urinary tract infection: Qualified Codes: N39.0 - Urinary tract infection, site not specified; R31.9 - Hematuria, unspecified Popeye Delgado DO Apr 30, 2017 09:01
[2017-04-30] MEDS ORDERED: LORazepam 2 MG/ML VIAL IV PUSH ONE (09:15)
[2017-04-30] MEDS: DOCUSATE SODIUM 50 MG/SENNA 8.6 MG TAB PO SCH ×2 (09:25→21:21)
[2017-04-30] MEDS: LACOSAMIDE 100 MG TAB PO SCH ×2 (09:25→21:21)
[2017-04-30] MEDS: PRAVASTATIN SOD 40 MG TAB PO SCH (09:25)
[2017-04-30] MEDS: THIAMINE HCL 100 MG TAB PO SCH (09:26)
[2017-04-30] MEDS: TOPIRAMATE 25 MG TAB PO SCH ×2 (09:26→21:22)
[2017-04-30] MEDS: HEPARIN SODIUM - SQ 10,000 UNITS/ML VIAL SQ SCH ×3 (09:26→21:23)
[2017-04-30] MEDS: PANTOPRAZOLE SOD 20 MG DELAYED RELEASE TAB PO SCH (09:26)
[2017-04-30] MEDS: SODIUM CHLORIDE 0.9% FLUSH 10 ML FLUSH IV FLUSH SCH ×2 (09:27→21:23)
[2017-04-30] MEDS: SODIUM CHLOR 0.45% 1000 ML INJ 1,000 ML IV SCH ×2 (09:28→17:23)
[2017-05-01] VITALS (8 sets, daily range): BP systolic 101–169; BP diastolic 60–91; PULSE 88–108; RESP 14–20; TEMP 97.2–98.6; O2SAT 96–99
[2017-05-01] MEDS: PIPERACIL-TAZO 4.5 GM PREMIX 100 ML IV SCH ×2 (00:45→05:39)
[2017-05-01] MEDS: SODIUM CHLOR 0.45% 1000 ML INJ 1,000 ML IV SCH ×2 (05:13→14:45)
[2017-05-01] MEDS: HEPARIN SODIUM - SQ 10,000 UNITS/ML VIAL SQ SCH ×3 (05:39→22:07)
[2017-05-01] MEDS: THIAMINE HCL 100 MG TAB PO SCH (08:40)
[2017-05-01] MEDS: PRAVASTATIN SOD 40 MG TAB PO SCH (08:40)
[2017-05-01] MEDS: DOCUSATE SODIUM 50 MG/SENNA 8.6 MG TAB PO SCH ×2 (08:40→22:08)
[2017-05-01] MEDS: LACOSAMIDE 100 MG TAB PO SCH ×2 (08:40→22:08)
[2017-05-01] MEDS: PANTOPRAZOLE SOD 20 MG DELAYED RELEASE TAB PO SCH (08:40)
[2017-05-01] MEDS: TOPIRAMATE 25 MG TAB PO SCH ×2 (08:41→22:08)
[2017-05-01] MEDS: SODIUM CHLORIDE 0.9% FLUSH 10 ML FLUSH IV FLUSH SCH ×2 (09:00→22:09)
[2017-05-01 11:14] LABS: AMYLASE 100 U/L (25-115); MAGNESIUM 1.8 MG/DL (1.5-2.5)
[2017-05-01 11:22] LABS: ALKALINE PHOSPHATASE 98 U/L (45-117); ALT (GPT) 30 U/L (12-78); ANION GAP 7 MEQ/L (5-15); AST (GOT) 20 U/L (15-37); BICARBONATE 20.8 MEQ/L (21.0-32.0); BLOOD UREA NITROGEN 9 MG/DL (7-18); CHLORIDE 117 MEQ/L (98-107); GLOMERULAR FILTRATION RATE 86 ML/MIN (>89); SODIUM (NA) 145 MEQ/L (136-145); TOTAL BILIRUBIN ADULT 0.3 MG/DL (0.2-1.0)
[2017-05-01 11:56] LABS: HEMATOCRIT 35.5 % (39.0-51.0); MEAN CELL VOLUME 92.5 FL (80.0-100.0); MEAN CORPUSCULAR HGB CONC 33.5 % (32.0-36.0); PLATELET COUNT 79 TH/MM3 (150-450); RED BLOOD COUNT 3.84 MIL/MM3 (4.50-5.90); RED CELL DISTRIBUTION WIDTH 14.6 % (11.6-17.2); WHITE BLOOD COUNT 16.3 TH/MM3 (4.0-11.0)
[2017-05-01 11:58] LABS: HEMO FLAGS AUTO DIFF
--- NOTE | 2017-05-01 12:02 | HHI.DCPOC ---
Discharge Care Plan Diagnosis: (1) UTI (urinary tract infection) (2) Dehydration (3) Sepsis Goals to Promote Your Health * To prevent worsening of your condition and complications * To maintain your health at the optimal level Directions to Meet Your Goals Take your medications as prescribed Follow your dietary instruction Follow activity as directed Keep your appointments as scheduled Take your immunizations and boosters as scheduled If your symptoms worsen call your PCP, if no PCP go to Urgent Care Center or Emergency Room Smoking is Dangerous to Your Health. Avoid second hand smoke Call the 24-hour hour crisis hotline for domestic abuse at Popeye Delgado DO May 01, 2017 12:02
--- NOTE | 2017-05-01 12:03 | HHI.FF ---
Face to Face Verification Diagnosis: (1) Cerebral vascular accident (2) UTI (urinary tract infection) (3) Sepsis (4) Urinary retention (5) Dehydration Physical Therapy Order: Evaluate and Treat, Improve ambulation, Strength and gait training Occupational Therapy Order: Evaluate and Treat, Improve ADL, Gross motor coordination, Fine motor coordination Home Health Nursing Order: Medical education Signs/symptoms of disease process Medication education-adverse effect Nursing assessment with vital signs I have seen patient Efrem Wilhelm on 05/01/17. My clinical findings support the need for the requested home health care services because: Ltd mobility - disease progression Deconditioned w/ increased weakness Med compliance is questionable Limited ability to care for self Need for psychosocial assistance Impaired cognition/judgement High risk of falls Infection w/ risk of complications I certify that my clinical findings support that this patient is homebound because: Impaired cognitive ability/safety Unsteady gait/balance Unsafe to leave home unassisted Need for psychosocial assistance Popeye Delgado DO May 01, 2017 12:03
[2017-05-01] MEDS ORDERED: CEFU1TAB20 PO (12:06)
[2017-05-01] MEDS ORDERED: LACT10SO PO (12:06)
--- NOTE | 2017-05-01 12:16 | HHI.DS ---
Discharge Summary Admission Date Apr 29, 2017 at 07:17 Discharge Date: May 02, 2017 Admitting Diagnosis Dehydration, Sepsis (1) Cerebral vascular accident ICD Code: I63.9 - Cerebral infarction, unspecified (2) UTI (urinary tract infection) ICD Code: N39.0 - Urinary tract infection, site not specified Diagnosis: Principal (3) Urinary retention ICD Code: R33.9 - Retention of urine, unspecified (4) Sepsis ICD Code: A41.9 - Sepsis, unspecified organism Diagnosis: Principal Status: Acute (5) Dehydration ICD Code: E86.0 - Dehydration Status: Acute Procedures None Brief History - From Admission The patient is a 61 year old male who presents to the [facility] emergency department with a history of decreased appetite since Thursday. Then, he became more confused and intermittently moaning at bedtime. He pointed to his abdomen as the site of the pain. His then woke up later with him having gurgling in the back of his throat. He then seemed to be erratically breathing and possibly short of breath. She denies having any vomiting or diarrhea. She reports that he did have a subjective fever this evening as he felt warm to the touch. He missed his Lactulose for a few days because he went out of town. He has a baseline level of confusion related to prior strokes and is minimally verbal on exam. The patient's family member at the bedside reports that his urine has smelled stronger than usual over the last 2 days. The patient is incontinent of urine and uses depends.The patient's denies him having any recent cough, congestion, neck pain, chest pain,vomiting, diarrhea, or focal neurologic symptoms. PATIENT REMAINS NONVERBAL AT THIS TIME DW RN TRY TO OBTAIN HOME MEDICATIONS CONSULT UROLOGY CBC/BMP: 05/01/17 1140 05/01/17 1028 Significant Findings Laboratory Tests Test 04/29/17 05:25 04/29/17 05:45 04/29/17 06:25 04/29/17 07:20 White Blood Count 3.5 TH/MM3 (4.0-11.0) Neutrophils (%) (Auto) 85.6 % (16.0-70.0) Lymphocytes # (Auto) 0.4 TH/MM3 (1.0-4.8) Activated Partial Thromboplast Time 20.6 SEC (24.3-30.1) D-Dimer Quantitative (PE/DVT) 2.40 MG/L FEU (0.00-0.50) Creatinine 1.81 MG/DL (0.60-1.30) Random Glucose 127 MG/DL (74-106) Total Protein 8.9 GM/DL (6.4-8.2) Calcium Level 11.2 MG/DL (8.5-10.1) Alkaline Phosphatase 164 U/L (45-117) Aspartate Amino Transf (AST/SGOT) 66 U/L (15-37) Sodium Level 147 MEQ/L (136-145) Chloride Level 116 MEQ/L (98-107) Carbon Dioxide Level 18.8 MEQ/L (21.0-32.0) Estimat Glomerular Filtration Rate 46 ML/MIN (>89) Lactic Acid Level 7.3 mmol/L (0.4-2.0) 4.6 mmol/L (0.4-2.0) Total Creatine Kinase 633 U/L (39-308) Creatine Kinase MB 4.2 NG/ML (0.5-3.6) Urine Color ORANGE (YELLW/STRAW) Urine Turbidity HAZY (CLEAR) Urine Protein 30 mg/dL (NEG-TRACE) Urine Occult Blood LARGE (NEG) Urine Leukocyte Esterase LARGE (NEG) Urine WBC 27 /hpf (0-5) Urine WBC Clumps RARE (NONE) Urine Bacteria MANY /hpf (NONE) Urine Mucus FEW /lpf (OCC) Test 04/29/17 16:35 04/29/17 23:30 05/01/17 10:28 05/01/17 11:40 Prothrombin Time 14.2 SEC (9.8-11.6) Lactic Acid Level 3.3 mmol/L (0.4-2.0) 2.7 mmol/L (0.4-2.0) 2.3 mmol/L (0.4-2.0) Total Creatine Kinase 384 U/L (39-308) Cholesterol Level 97 MG/DL (120-200) Total Protein 5.9 GM/DL (6.4-8.2) Albumin 2.8 GM/DL (3.4-5.0) Chloride Level 117 MEQ/L (98-107) Carbon Dioxide Level 20.8 MEQ/L (21.0-32.0) Estimat Glomerular Filtration Rate 86 ML/MIN (>89) Ammonia 61 MCMOL/L (11-32) White Blood Count 16.3 TH/MM3 (4.0-11.0) Red Blood Count 3.84 MIL/MM3 (4.50-5.90) Hemoglobin 11.9 GM/DL (13.0-17.0) Hematocrit 35.5 % (39.0-51.0) Platelet Count 79 TH/MM3 (150-450) Phosphorus Level 2.0 MG/DL (2.5-4.9) Imaging Last Impressions CT Angiography 04/29/17617 Signed Impressions: Service Date/Time: Saturday, April 29, 2017 07:10 - CONCLUSION: 1. Examination quality is significantly degraded by severe respiratory motion artifact. However, no PE is identified within the visualized vessels. 2. Moderate emphysema. Sj Carter MD Head CT 04/29/17511 Signed Impressions: Service Date/Time: Saturday, April 29, 2017 05:35 - CONCLUSION: 1. No acute hemorrhage or infarction. 2. Large chronic subdural fluid collection on the left with some mass effect including 8 mm of midline shift. 3. Significant areas of encephalomalacia involving the right cerebral hemisphere and left temporal lobe as detailed above. Endy Lemon Jr., MD Chest X-Ray 04/29/17511 Signed Impressions: Service Date/Time: Saturday, April 29, 2017 05:41 - CONCLUSION: No acute disease. Endy Lemon Jr., MD PE at Discharge GENERAL: Appears comfortable. SKIN: No rashes, ecchymoses or lesions. Cool and dry. HEAD: Atraumatic. Normocephalic. No temporal or scalp tenderness. EYES: Pupils equal round and reactive. Extraocular motions intact. No scleral icterus. No injection or drainage. ENT: Nose without bleeding, purulent drainage or septal hematoma. Throat without erythema, tonsillar hypertrophy or exudate. Uvula midline. Airway patent. NECK: Trachea midline. No JVD or lymphadenopathy. Supple, nontender, no meningeal signs. Old tracheostomy scar CARDIOVASCULAR: Regular rate and rhythm without murmurs, gallops, or rubs. RESPIRATORY: Clear to auscultation. Breath sounds equal bilaterally. No wheezes , rales, or rhonchi. GASTROINTESTINAL: Abdomen soft, non-tender, nondistended. No hepato-splenomegaly , or palpable masses. No guarding. MUSCULOSKELETAL: Extremities without clubbing, cyanosis, or edema. No joint tenderness, effusion, or edema noted. NEUROLOGICAL: Nonverbal at this time. Moves extremities. Uncooperative with exam. Pt update on day of discharge The pt appeared comfortable. He was talking incoherently. No obvious concerns noted. Hospital Course Sepsis Secondary to urinary tract infection. He was started on vancomycin and Zosyn. He received IVFs. Antibiotics were changed to ceftriaxone per sensitivities. He will complete a course of Ceftin. Metabolic encephalopathy CT showed: No acute hemorrhage or infarction; Large chronic subdural fluid collection on the left with some mass effect including 8 mm of midline shift; Significant areas of encephalomalacia involving the right cerebral hemisphere and left temporal lobe. He received treatment as above for a UTI. His ammonia was elevated. He will continue lactulose. He will follow up with neurology as an outpt. Dehydration and renal insufficiency Unsure of baseline creatinine. Resolved with fluid rehydration. Hypernatremia Resolved with half normal saline. History of CVA He worked with physical therapy, occupational therapy and speech therapy. Thrombocytopenia Unsure of baseline. Has been stable. Follow CBC in 3-5 days and follow up with PCP. Pt Condition on Discharge: Stable Discharge Disposition: Disch w/ Home Health Serv Discharge Time: > 30 minutes Discharge Instructions DIET: Follow Instructions for: As Tolerated, No Restrictions Activities you can perform: Weight Bearing as Yao Follow up Referrals: Neurology - 2 Weeks with Saroj Mortensen MD PCP Follow-up - 1 Week Urology - 1 Week with Narciso Mcgarry MD New Orders: CBC WITH DIFF - 3-5 Days New Medications: Cefuroxime (Cefuroxime) 500 Mg Tab 500 MG PO BID for Infection for 4 Days, #8 TAB 0 Refills Take first dose 05/02 Lactulose Liq (Lactulose Liq) 10 Gm/15 Ml Soln 30 ML PO BID for Ammonia level for 30 Days, #1800 ML 0 Refills Continued Medications: Amlodipine (Norvasc) 5 Mg Tab 5 MG PO DAILY for Blood Pressure Management, #30 TAB 0 Refills Lacosamide (Vimpat) 200 Mg Tab 200 MG PO BID for Control Seizures, #60 TAB 0 Refills Omeprazole (Omeprazole) 20 Mg Tab 20 MG PO DAILY, #30 TAB 0 Refills Pitavastatin (Livalo) 2 Mg Tab 2 MG PO DAILY for Cholesterol Management, #30 TAB 0 Refills Thiamine (Vitamin B-1) 100 Mg Tab 100 MG PO DAILY for Nutritional Supplement, TAB 0 Refills Topiramate (Topamax) 50 Mg Tab 50 MG PO BID for Control Seizures, #60 TAB 0 Refills Popeye Delgado DO May 01, 2017 12:16
[2017-05-01 12:31] LABS: BANDS 14 % (0-6); DOHLE BODIES PRESENT (NONE SEEN); EOSINOPHILS 2 % (0-4); NEUTROPHIL # MANUAL DIFF 15.3 TH/MM3 (1.8-7.7); POLYS (SEG NEUTROPHILS) 80 % (16-70); WBC DIFF SAMPLE 100
[2017-05-01 12:32] LABS: PLATELET ESTIMATE SMEAR LOW (NORMAL); PLATELET MORPHOLOGY NORMAL (NORMAL); SCAN/DIFF FINAL DIFF MANUAL
--- NOTE | 2017-05-01 12:32 | HHI.PR ---
Subjective Remarks The pt's was at the bedside and she said she felt her was back to his baseline. She said she would be able to take him home if possible. He ate his breakfast. Discussed with nursing. Objective Vitals Vital Signs Date Time Temp Pulse Resp B/P (MAP) Pulse Ox O2 Delivery O2 Flow Rate FiO2 05/01/17 08:25 99 21 05/01/17 08:20 98.3 97 16 123/88 (100) 99 05/01/17 02:19 88 05/01/17 01:42 97.2 91 16 142/60 (87) 96 04/30/17 22:26 18 04/30/17 21:17 97.6 95 18 142/74 (96) 95 04/30/17 17:56 98 6.00 04/30/17 15:00 97.6 84 18 127/74 (91) 98 04/30/17 14:11 97.6 83 18 147/60 (89) 97 04/30/17 12:29 100 21 I/O 04/30/17 04/30/17 04/30/17 05/01/17 05/01/17 05/01/17 07:00 15:00 23:00 07:00 15:00 23:00 Intake Total 1040 ml 1300 ml 1000 ml Output Total 650 ml Balance 390 ml 1300 ml 1000 ml Intake Oral 840 ml IV Total 200 ml 1300 ml 1000 ml Output Urine Total 650 ml # Voids 3 1 2 3 # Bowel Movements 2 1 0 Result Diagram: 05/01/17 1140 05/01/[address] Angiography 04/29/17 0618 Signed Impressions: Service Date/Time: Saturday, April 29, 2017 07:10 - CONCLUSION: 1. Examination quality is significantly degraded by severe respiratory motion artifact. However, no PE is identified within the visualized vessels. 2. Moderate emphysema. Sj Carter MD Head CT 04/29/17 0512 Signed Impressions: Service Date/Time: Saturday, April 29, 2017 05:35 - CONCLUSION: 1. No acute hemorrhage or infarction. 2. Large chronic subdural fluid collection on the left with some mass effect including 8 mm of midline shift. 3. Significant areas of encephalomalacia involving the right cerebral hemisphere and left temporal lobe as detailed above. Endy Lemon Jr., MD Chest X-Ray 04/29/17 0512 Signed Impressions: Service Date/Time: Saturday, April 29, 2017 05:41 - CONCLUSION: No acute disease. Endy Lemon Jr., MD Objective Remarks GENERAL: Appears comfortable. SKIN: No rashes, ecchymoses or lesions. Cool and dry. HEAD: Atraumatic. Normocephalic. No temporal or scalp tenderness. EYES: Pupils equal round and reactive. Extraocular motions intact. No scleral icterus. No injection or drainage. ENT: Nose without bleeding, purulent drainage or septal hematoma. Throat without erythema, tonsillar hypertrophy or exudate. Uvula midline. Airway patent. NECK: Trachea midline. No JVD or lymphadenopathy. Supple, nontender, no meningeal signs. Old tracheostomy scar CARDIOVASCULAR: Regular rate and rhythm without murmurs, gallops, or rubs. RESPIRATORY: Clear to auscultation. Breath sounds equal bilaterally. No wheezes , rales, or rhonchi. GASTROINTESTINAL: Abdomen soft, non-tender, nondistended. No hepato-splenomegaly , or palpable masses. No guarding. MUSCULOSKELETAL: Extremities without clubbing, cyanosis, or edema. No joint tenderness, effusion, or edema noted. NEUROLOGICAL: Awake and alert. Nonverbal at this time. Moves extremities. Medications and IVs Current Medications Medications (Trade) Dose Ordered Sig/Feliciano Route Start Time Stop Time Status Last Admin (NS Flush) 2 ml UNSCH PRN IV FLUSH 04/29/17 08:00 (NS Flush) 2 ml BID IV FLUSH 04/29/17 09:00 04/30/17 21:23 (Tylenol) 650 mg Q4H PRN PO 04/29/17 08:00 (Zofran Inj) 4 mg Q6H PRN IVP 04/29/17 08:00 (Compazine Supp) 25 mg Q12H PRN RECTAL 04/29/17 08:00 (Tylenol) 650 mg Q6H PRN PO 04/29/17 08:00 (Percocet 5-325 Mg) 1 tab Q6H PRN PO 04/29/17 08:00 04/30/17 21:22 (Percocet 10-325 Mg) 1 tab Q6H PRN PO 04/29/17 08:00 (Morphine Inj) 2 mg Q3H PRN IV PUSH 04/29/17 08:00 (Morphine Inj) 4 mg Q3H PRN IV PUSH 04/29/17 08:00 (Narcan Inj) 0.4 mg UNSCH PRN IV PUSH 04/29/17 08:00 (Kaylen-Colace) 1 tab BID PO 04/29/17 09:00 05/01/17 08:40 (Milk Of Magnesia Liq) 30 ml Q12H PRN PO 04/29/17 08:00 (Senokot) 17.2 mg Q12H PRN PO 04/29/17 08:00 (Dulcolax Supp) 10 mg DAILY PRN RECTAL 04/29/17 08:00 (Lactulose Liq) 30 ml DAILY PRN PO 04/29/17 08:00 (Vimpat) 200 mg BID PO 04/29/17 09:45 05/01/17 08:40 (Vitamin B1) 100 mg DAILY PO 04/29/17 09:45 05/01/17 08:40 (Topamax) 50 mg BID PO 04/29/17 09:45 05/01/17 08:41 (Protonix) 20 mg DAILY PO 04/29/17 10:00 05/01/17 08:40 (Pravachol) 40 mg DAILY PO 04/29/17 10:00 05/01/17 08:40 Sodium Chloride 1,000 ml @ 100 mls/hr Q10H IV 04/30/17 08:45 05/01/17 05:13 (Heparin Inj) 5,000 units Q8HR SQ 04/30/17 09:15 05/01/17 05:39 Ceftriaxone Sodium 1000 mg/ Sodium Chloride 100 ml @ 200 mls/hr Q24H IV 05/01/17 11:45 UNV A/P Problem List: (1) Cerebral vascular accident ICD Code: I63.9 - Cerebral infarction, unspecified (2) UTI (urinary tract infection) ICD Code: N39.0 - Urinary tract infection, site not specified (3) Urinary retention ICD Code: R33.9 - Retention of urine, unspecified (4) Sepsis ICD Code: A41.9 - Sepsis, unspecified organism Status: Acute (5) Dehydration ICD Code: E86.0 - Dehydration Status: Acute Assessment and Plan Sepsis/ UTI Urine culture grew E coli. CBC 04/30 with leukocytosis. - change vancomycin and Zosyn to ceftriaxone per sensitivities. - IVFs. - follow blood culture data. - repeat CBC. Metabolic encephalopathy Likely s/t above. CT showed: No acute hemorrhage or infarction; Large chronic subdural fluid collection on the left with some mass effect including 8 mm of midline shift; Significant areas of encephalomalacia involving the right cerebral hemisphere and left temporal lobe. Ammonia level 61. - treatment as above. - continue lactulose. - follow up with neurology as an outpt. Dehydration and renal insufficiency Unsure of baseline creatinine. Resolved with IVFs. - continue on fluid rehydration. - follow BMP and avoid nephrotoxic agents. Hypernatremia Likely s/t decreased PO intake. - change fluids to 1/2 NS and follow BMP. Resolved. Hypoglycemia Likely s/t decreased PO intake. - change fluids to D51/2 NS and change diet to regular. Thrombocytopenia/ Anemia Possibly dilutional. - repeat CBC pending. History of CVA The pt is nonverbal at this time. - continue physical therapy, occupational and speech therapy. - will need [facility]. Case management assistance appreciated. PPx: Heparin Discharge Planning D/c home if repeat CBC stable and glucose level improves Problem Qualifiers (1) Sepsis: Qualified Codes: A41.9 - Sepsis, unspecified organism Popeye Delgado DO May 01, 2017 12:32
[2017-05-01] MEDS ORDERED: DEXT 5%-NACL 0.45% 1000 ML INJ 1,000 ML IV SCH (13:15)
[2017-05-01] MEDS ORDERED: SODIUM PHOSPHATE INJ 15 MMOL in SODIUM CHLORIDE 0.9% INJ 150 ML IV ONE ×2 (14:00→18:30)
[2017-05-01] MEDS: cefTRIAXone INJ 1,000 MG in SODIUM CHLORIDE 0.9% INJ 100 ML IV SCH (15:15)
[2017-05-01 15:51] LABS: HEMOGLOBIN A1a 1.1 %; HEMOGLOBIN A1b 0.8 %; HEMOGLOBIN F 0.9 %; HEMOGLOBIN LA1C 1.6 %
[2017-05-01 18:54] LABS: AUTOMATED NEUTROPHIL # 11.4 TH/MM3 (1.8-7.7); BASOPHIL % 0.3 % (0.0-2.0); EOSINOPHIL # 0.3 TH/MM3 (0-0.4); EOSINOPHIL % 2.3 % (0.0-4.0); HEMATOCRIT 35.8 % (39.0-51.0); LYMPH % 10.9 % (9.0-44.0); LYMPHOCYTE # 1.5 TH/MM3 (1.0-4.8); MEAN CORPUSCULAR HEMOGLOBIN 30.8 PG (27.0-34.0); MEAN CORPUSCULAR HGB CONC 33.2 % (32.0-36.0); MONO % 5.8 % (0.0-8.0); NEUT % 80.7 % (16.0-70.0); RED BLOOD COUNT 3.85 MIL/MM3 (4.50-5.90); RED CELL DISTRIBUTION WIDTH 14.8 % (11.6-17.2); WHITE BLOOD COUNT 14.2 TH/MM3 (4.0-11.0)
[2017-05-01 19:01] LABS: HEMO FLAGS AUTO DIFF
[2017-05-01 19:30] LABS: PLATELET COUNT 84 TH/MM3 (150-450); SCAN/DIFF AUTO DIFF CONFIRMED
[2017-05-01] MEDS ORDERED: PHARMACY ORDERED LAB ONE (20:45)
[2017-05-02] VITALS: BP 124/84; PULSE 73; RESP 18; TEMP 98.7; O2SAT 96
[2017-05-02 00:54] VITALS: PULSE 88
[2017-05-02] MEDS: SODIUM CHLOR 0.45% 1000 ML INJ 1,000 ML IV SCH ×2 (01:05→11:30)
[2017-05-02 04:08] VITALS: BP 152/78; PULSE 85; RESP 18; TEMP 98.8; O2SAT 96
[2017-05-02] MEDS: HEPARIN SODIUM - SQ 10,000 UNITS/ML VIAL SQ SCH ×2 (05:41→14:37)
[2017-05-02 07:41] LABS: HEMATOCRIT 36.9 % (39.0-51.0); MEAN CELL VOLUME 93.3 FL (80.0-100.0); MEAN CORPUSCULAR HEMOGLOBIN 31.2 PG (27.0-34.0); MEAN CORPUSCULAR HGB CONC 33.4 % (32.0-36.0); PLATELET COUNT 87 TH/MM3 (150-450); RED BLOOD COUNT 3.95 MIL/MM3 (4.50-5.90); RED CELL DISTRIBUTION WIDTH 14.6 % (11.6-17.2); WHITE BLOOD COUNT 9.9 TH/MM3 (4.0-11.0)
[2017-05-02 08:00] VITALS: BP 108/56; PULSE 83; RESP 20; TEMP 98.6; O2SAT 95
[2017-05-02 08:04] LABS: REVIEW FLAG AUTO DIFF
[2017-05-02 08:05] LABS: MAGNESIUM 1.8 MG/DL (1.5-2.5); POTASSIUM 4.2 MEQ/L (3.5-5.1)
[2017-05-02] MEDS: LACOSAMIDE 100 MG TAB PO SCH (08:46)
[2017-05-02] MEDS: TOPIRAMATE 25 MG TAB PO SCH (08:46)
[2017-05-02] MEDS: THIAMINE HCL 100 MG TAB PO SCH (08:46)
[2017-05-02] MEDS: DOCUSATE SODIUM 50 MG/SENNA 8.6 MG TAB PO SCH (08:46)
[2017-05-02] MEDS: PRAVASTATIN SOD 40 MG TAB PO SCH (08:47)
[2017-05-02] MEDS: SODIUM CHLORIDE 0.9% FLUSH 10 ML FLUSH IV FLUSH SCH (08:47)
[2017-05-02] MEDS: PANTOPRAZOLE SOD 20 MG DELAYED RELEASE TAB PO SCH (08:47)
[2017-05-02 09:12] VITALS: O2SAT 95
[2017-05-02 12:00] VITALS: BP 115/79; PULSE 87; RESP 20; TEMP 98.8; O2SAT 95
[2017-05-02] MEDS: cefTRIAXone INJ 1,000 MG in SODIUM CHLORIDE 0.9% INJ 100 ML IV SCH (14:37)
== END 2017-05-02 16:36 | disposition home health service (06) | DRG 871 ==
LOC: NEPE 04:38 → NEDA 07:17 → HIMN 10:50 → N05A 04-30 13:30
PROVIDERS: ADMIT Hospitalist; ATTEND Hospitalist
DX: A41.9 Sepsis, unspecified organism (principal); G93.41 Metabolic encephalopathy; E87.0 Hyperosmolality and hypernatremia; D69.6 Thrombocytopenia, unspecified; G93.89 Other specified disorders of brain; E86.0 Dehydration; N39.0 Urinary tract infection, site not specified; R56.9 Unspecified convulsions; B96.20 Unspecified Escherichia coli [E. coli] as the cause of diseases classified elsewhere; E16.2 Hypoglycemia, unspecified; D64.9 Anemia, unspecified; I69.320 Aphasia following cerebral infarction; K21.9 Gastro-esophageal reflux disease without esophagitis; N28.9 Disorder of kidney and ureter, unspecified; E78.5 Hyperlipidemia, unspecified; I10 Essential (primary) hypertension; R33.9 Retention of urine, unspecified; R32 Unspecified urinary incontinence; I69.398 Other sequelae of cerebral infarction; I25.10 Atherosclerotic heart disease of native coronary artery without angina pectoris; Z87.891 Personal history of nicotine dependence; Z87.440 Personal history of urinary (tract) infections; Z86.718 Personal history of other venous thrombosis and embolism
CPT/HCPCS: 70450; 71010; 71275; 80048; 80053; 80061; 81001; 82140; 82150; 82550; 82552; 82948; 83036; 83605; 83690; 83735; 83880; 84100; 84439; 84443; 84484; 85007; 85025; 85027; 85379; 85610; 85730; 87040; 87077; 87086; 87186; 93005; 96365; G9168-GN; G9169-GN; G9170-GN; J0696; J1644; J2543; J3370; J7030; J7040; J7050; Q9967

== ENCOUNTER 2017-06-03 01:12 | Emergency (ER) | payer MEDICARE, OTHER ==
[~2017-06-03] VITALS: Ht 172.7 cm; Wt 75.0 kg
[~2017-06-03 01:12] MED LIST: AMLO5 PO; CEFU1TAB20 PO; LACT10SO PO; LIVA2TAB PO; OMEP20TA PO; TOPA50TA7 PO; VIMP200T PO; VITA100T54 PO
--- NOTE | 2017-06-03 01:39 | PD ---
HPI Chief Complaint: seizure Time Seen by Provider: 01:38 Travel History International Travel<30 days: No Contact w/Intl Traveler<30days: No Traveled to known affect area: No History of Present Illness HPI 61-year-old male was brought to the emergency room for a generalized tonic- clonic seizure that the witnessed him call 911. She has history of seizure disorder. He has history of intracranial bleed and stroke in the past which has led to an encephalopathy and his baseline mental status a is a seizure , agitation and unable to understand or express himself. told me that he has been getting very agitated where occasionally he would not allow her to take the Vimpat and she has missed giving him a few doses due to that and the seizure could have been because of that. Vital signs are stable. Patient is back to his baseline. [facility] Past Medical History Narrative Medical List of his past medical, surgical, social and family history is reviewed from the nursing note. Arthritis: Yes Autoimmune Disease: No Cancer: No Cerebrovascular Accident: Yes Endocrine: No Genitourinary: No Immune Disorder: No Neurologic: Yes Psychiatric: No Reproductive: No Seizures: Yes Sleep Apnea: Yes Social History Alcohol Use: No Tobacco Use: No Substance Use: No Allergies-Medications (Allergen,Severity, Reaction): Coded Allergies: No Known Allergies (Unverified , 06/03/17) Comments No known drug allergies. Reported Meds & Prescriptions Reported Meds & Active Scripts Active Lactulose Liq (Lactulose) 10 Gm/15 Ml Soln 30 Ml PO BID 30 Days Reported Ferrex 150 (Polysaccharide Iron Complex) 150 Mg Iron Cap 150 PO DAILY Livalo (Pitavastatin) 2 Mg Tab 2 Mg PO DAILY Omeprazole 20 Mg Tab 20 Mg PO DAILY Topamax (Topiramate) 50 Mg Tab 50 Mg PO BID Vitamin B-1 (Thiamine HCl) 100 Mg Tab 100 Mg PO DAILY Vimpat (Lacosamide) 200 Mg Tab 200 Mg PO BID Norvasc (Amlodipine Besylate) 5 Mg Tab 5 Mg PO DAILY Narrative Medication List of his home medications reviewed from the nursing note. Review of Systems ROS Limitations: Altered Mental Status, Poor Historian Except as stated in HPI: all other systems reviewed are Neg Neurologic: Positive: Seizures Physical Exam Narrative GENERAL: Encephalopathy baseline, agitated SKIN: Focused skin assessment warm/dry. HEAD: Atraumatic. Normocephalic. EYES: Pupils equal and round. No scleral icterus. No injection or drainage. ENT: No nasal bleeding or discharge. Mucous membranes pink and moist. NECK: Trachea midline. No JVD. CARDIOVASCULAR: Regular rate and rhythm. No murmur appreciated. RESPIRATORY: No accessory muscle use. Clear to auscultation. Breath sounds equal bilaterally. GASTROINTESTINAL: Abdomen soft, non-tender, nondistended. Hepatic and splenic margins not palpable. MUSCULOSKELETAL: No obvious deformities. No clubbing. No cyanosis. No edema. NEUROLOGICAL: Agitated, baseline mental status. Motor grossly within normal limits. Encephalopathy PSYCHIATRIC: Difficult to assess Data Data Last Documented VS Orders Orders Complete Blood Count With Diff (06/03/17 02:00) Basic Metabolic Panel (Bmp) (06/03/17 02:00) Electrocardiogram (06/03/17 ) Ct Brain W/O Iv Contrast(Rout) (06/03/17 ) Blood Glucose (06/03/17 02:00) Ecg Monitoring (06/03/17 02:00) Iv Access Insert/Monitor (06/03/17 02:00) Oximetry (06/03/17 02:00) Sodium Chloride 0.9% Flush (Ns Flush) (06/03/17 02:00) Lacosamide (Vimpat) (06/03/17 04:45) Ed Discharge Order (06/03/17 04:41) Labs Laboratory Tests Test 06/03/17 02:00 White Blood Count 6.7 TH/MM3 Red Blood Count 4.71 MIL/MM3 Hemoglobin 14.7 GM/DL Hematocrit 43.5 % Mean Corpuscular Volume 92.4 FL Mean Corpuscular Hemoglobin 31.1 PG Mean Corpuscular Hemoglobin Concent 33.7 % Red Cell Distribution Width 14.0 % Platelet Count 219 TH/MM3 Mean Platelet Volume 8.3 FL Neutrophils (%) (Auto) 35.5 % Lymphocytes (%) (Auto) 52.4 % Monocytes (%) (Auto) 8.8 % Eosinophils (%) (Auto) 2.7 % Basophils (%) (Auto) 0.6 % Neutrophils # (Auto) 2.4 TH/MM3 Lymphocytes # (Auto) 3.5 TH/MM3 Monocytes # (Auto) 0.6 TH/MM3 Eosinophils # (Auto) 0.2 TH/MM3 Basophils # (Auto) 0.0 TH/MM3 CBC Comment DIFF FINAL Differential Comment Blood Urea Nitrogen 11 MG/DL Creatinine 0.99 MG/DL Random Glucose 94 MG/DL Calcium Level 10.3 MG/DL Sodium Level 143 MEQ/L Potassium Level 4.1 MEQ/L Chloride Level 114 MEQ/L Carbon Dioxide Level 21.0 MEQ/L Anion Gap 8 MEQ/L Estimat Glomerular Filtration Rate 93 ML/MIN MDM Medical Decision Making Medical Screen Exam Complete: Yes Emergency Medical Condition: Yes Medical Record Reviewed: Yes Interpretation(s) Twelve-lead EKG was reviewed by me. Normal sinus rhythm, normal axis, nonspecific ST-T wave changes. Heart rate of 86 bpm. Differential Diagnosis Seizure disorder, intracranial bleed Narrative Course 4:30 AM blood test results and the CAT scan are within acceptable limits. CAT scan does not show any acute changes. I discussed these results with his . Patient will get 1 dose of the Vimpat here. He will be discharged home and she is comfortable with that plan. Patient will require a van to take him home. Procedures EKG Prior to Arrival: No Diagnosis Primary Impression: Seizure Referrals: Primary Care Physician Additional Instructions: Please return to the ER if the condition worsens or any other new concerns. Make sure the medications are given time a. I'll up with your neurologist. Disposition: DISCHARGE HOME Condition: Stable Megha Flores MD Jun 03, 2017 01:39
[2017-06-03] MEDS ORDERED: SODIUM CHLORIDE 0.9% FLUSH 10 ML FLUSH IVF PRN (02:00)
[2017-06-03 02:05] VITALS: O2SAT 95
[2017-06-03 02:07] VITALS: BP 128/80; PULSE 64; RESP 20; TEMP 98.6; O2SAT 98
[2017-06-03] MEDS ORDERED: FERR150C PO (02:07)
[2017-06-03 02:23] LABS: AUTOMATED NEUTROPHIL # 2.4 TH/MM3 (1.8-7.7); BASOPHIL % 0.6 % (0.0-2.0); EOSINOPHIL # 0.2 TH/MM3 (0-0.4); EOSINOPHIL % 2.7 % (0.0-4.0); HEMATOCRIT 43.5 % (39.0-51.0); HEMOGLOBIN 14.7 GM/DL (13.0-17.0); LYMPH % 52.4 % (9.0-44.0); LYMPHOCYTE # 3.5 TH/MM3 (1.0-4.8); MEAN CELL VOLUME 92.4 FL (80.0-100.0); MEAN CORPUSCULAR HEMOGLOBIN 31.1 PG (27.0-34.0); MEAN CORPUSCULAR HGB CONC 33.7 % (32.0-36.0); MEAN PLATELET VOLUME 8.3 FL (7.0-11.0); MONO % 8.8 % (0.0-8.0); MONOCYTE # 0.6 TH/MM3 (0-0.9); NEUT % 35.5 % (16.0-70.0); PLATELET COUNT 219 TH/MM3 (150-450); RED BLOOD COUNT 4.71 MIL/MM3 (4.50-5.90); WHITE BLOOD COUNT 6.7 TH/MM3 (4.0-11.0)
[2017-06-03 03:14] LABS: CALCIUM 10.3 MG/DL (8.5-10.1); CREATININE 0.99 MG/DL (0.60-1.30)
--- NOTE | 2017-06-03 03:14 | RADRPT ---
EXAM DATE/TIME: 06/03/2017 02:36 [place] COMPARISON: CT BRAIN W/O CONTRAST, April 29, 2017, 5:35. INDICATIONS : Altered mental status. Seizure. RADIATION DOSE: 39.71 CTDIvol (mGy) MEDICAL HISTORY : Cerebrovascular disease. Seizures. Hypertension.DE. SURGICAL HISTORY : None. ENCOUNTER: Initial ACUITY: 1 day PAIN SCALE: Non-responsive LOCATION: cranial TECHNIQUE: Multiple contiguous axial images were obtained of the head. Using automated exposure control and adj ustment of the mA and/or kV according to patient size, radiation dose was kept as low as reasonably a chievable to obtain optimal diagnostic quality images. DICOM format image data is available electro nically for review and comparison. FINDINGS: CEREBRUM: Left-sided hygroma/chronic subdural fluid collection measures 2.6 cm with left to right midline shift of 7 mm. The ventricles are normal for age. Multifocal areas of encephalomalacia. No evidence of mid line shift, mass lesion, hemorrhage or acute infarction. POSTERIOR FOSSA: The cerebellum and brainstem are intact. The 4th ventricle is midline. The cerebellopontine angle i s unremarkable. EXTRACRANIAL: The visualized portion of the orbits is intact. SKULL: The calvaria is intact. No evidence of skull fracture. CONCLUSION: 1. Multifocal encephalomalacia. 2. Left-sided chronic subdural fluid collection, with left to right midline shift of 7 mm. Patrick Perry MD on June 03, 2017 at 3:10 Board Certified Radiologist. This report was verified electronically.
[2017-06-03 04:18] VITALS: BP 153/81; PULSE 82; RESP 20; O2SAT 98
[2017-06-03] MEDS ORDERED: LACOSAMIDE 100 MG TAB PO ONE (04:45)
--- NOTE | 2017-06-03 21:20 | EKG ---
Date Performed: 06/03/2017 Time Performed: 01:33:38 PTAGE: 61 years EKG: Sinus rhythm LOW QRS VOLTAGE IN EXTREMITY LEADS BORDERLINE ECG Compared to the PREVIOUS TRACING rate slower DOCTOR: Dixon Herrera Interpretating Date/Time 06/03/2017 21:20:02
== END 2017-06-03 09:05 | disposition home or self-care (01) ==
LOC: NEPE 01:12
DX: G40.909 Epilepsy, unspecified, not intractable, without status epilepticus (principal); G93.89 Other specified disorders of brain; M19.90 Unspecified osteoarthritis, unspecified site; Z86.73 Personal history of transient ischemic attack (TIA), and cerebral infarction without residual deficits; Z79.899 Other long term (current) drug therapy
CPT/HCPCS: 70450; 80048; 85025; 93005; 99284